=== PATIENT | male | born 1950 | race Caucasian/White ===

== ENCOUNTER → 2017-01-11 | Outpatient (REF) | payer OTHER | LOC: M LABDRAW1 09:22 | PROVIDERS: ATTEND Urology | DX: Z85.46 Personal history of malignant neoplasm of prostate (principal) ==

== ENCOUNTER → 2017-02-27 | Outpatient (REF) | payer OTHER ==
[2017-02-27 10:29] LABS: ALT/SGPT 43 U/L (12-78); ANION GAP 4 MEQ/L (8-16); AST/SGOT 22 U/L (7-37); BLOOD UREA NITROGEN 17 MG/DL (7-18); CALCIUM LEVEL 9.2 MG/DL (8.8-10.2); CARBON DIOXIDE LEVEL 32 MEQ/L (21-32); CHLORIDE LEVEL 105 MEQ/L (98-107); CHOLESTEROL LEVEL 199 MG/DL (<200); CREATININE FOR GFR 1.15 MG/DL (0.70-1.30); GLOMERULAR FILTRATION RATE > 60.0 (>49); GLUCOSE, FASTING 105 MG/DL (80-110); POTASSIUM SERUM 4.5 MEQ/L (3.5-5.1); SODIUM LEVEL 141 MEQ/L (136-145); TRIGLYCERIDES LEVEL 131 MG/DL (<150)
== END ==
LOC: M LABDRAW1 09:51
PROVIDERS: ATTEND Family Medicine
DX: E78.00 Pure hypercholesterolemia, unspecified (principal); I10 Essential (primary) hypertension

== ENCOUNTER → 2018-02-21 | Outpatient (CLI) | payer OTHER ==
[2018-02-21 11:02] LABS: PROSTATIC SPECIFIC AG MONITOR < 0.0 NG/ML (< 4.0)
== END ==
LOC: M LAB 09:27
DX: Z85.46 Personal history of malignant neoplasm of prostate (principal)
CPT/HCPCS: 84153

== ENCOUNTER → 2018-02-27 | Outpatient (CLI) | payer OTHER | LOC: M WUC 16:51 | DX: M19.041 Primary osteoarthritis, right hand (principal); M19.042 Primary osteoarthritis, left hand | CPT/HCPCS: 73130 ==

== ENCOUNTER → 2018-02-27 | Outpatient (REF) | payer OTHER ==
[2018-02-27 12:50] LABS: HEMATOCRIT 47.9 % (42.0-52.0); HEMOGLOBIN 16.2 g/dl (13.5-17.5); MEAN CORPUSCULAR HGB CONC 33.8 g/dl (32.0-36.5); MEAN CORPUSCULAR VOLUME 91.6 fl (80.0-96.0); PLATELET COUNT, AUTOMATED 220 10^3/uL (150-450); RED BLOOD COUNT 5.23 10^6/uL (4.30-6.10); RED CELL DISTRIBUTION WIDTH 12.2 % (11.5-14.5); WHITE BLOOD COUNT 5.5 10^3/uL (4.0-10.0)
[2018-02-27 13:00] LABS: C REACTIVE PROTEIN QUANTITATIV < 0.30 MG/DL (0.00-0.30)
[2018-02-27 13:00] LABS: RHEUMATOID FACTOR QUANT < 10.0 IU/ML (<15.0)
[2018-02-27 13:17] LABS: ERYTHROCYTE SEDIMENTATION RATE 3 mm/hr (0-20)
[2018-03-01 00:57] LABS: CYCLIC CITRULLINATED PEPTIDE 8 units (0-19)
[2018-03-01 00:57] LABS: ANTINUCLEAR ANTIBODIES DIRECT Negative (Negative)
== END ==
LOC: M LABDRAW1 11:55
DX: M25.541 Pain in joints of right hand (principal); M25.542 Pain in joints of left hand
CPT/HCPCS: 86140

== ENCOUNTER → 2018-09-29 | Outpatient (CLI) | payer OTHER ==
--- NOTE | 2018-09-30 06:15 | ECHO ---
DATE OF PROCEDURE: 09/29/2018 DATE OF : 1950 OUTPATIENT REFERRING PHYSICIAN: Dr. Anegl Sylvester INDICATION: Aortic stenosis. MEASUREMENTS 2-D Measurements: RV: 3.3 cm LV: 5.0 cm Septum: 1.1 cm Posterior wall: 1.1 cm Aortic root: 3.3 cm LA: 4.0 cm LVEF: 65% Doppler Measurements: AV: 1.88 m/s LVOT: Unfortunately off angle and incorrect LVOT diameter: 2.0 Mean AV gradient: 8 mmHg MV - E 83 A 61 EA ratio 1.4 Early mitral deceleration time: 197 ms E prime: 5.6, A prime: 7.8 E/E prime ratio: 14.8 PCWP: 14.9 mmHg PV: 0.9 m/s Pulmonary artery acceleration time: 110 ms RVSP: 32 mmHg IVC: 1.9 cm COMMENTS: Sinus bradycardia without intraventricular conduction disturbance. M-mode and two-dimensional echocardiography was performed with pulsed, continuous wave, color flow and tissue Doppler studies. Normal left ventricular size and wall thickness with normal wall motion. Mildly dilated left atrium with an impairment of LV diastolic function and current estimated mean left atrial pressure slightly elevated. Normal appearing right heart chamber sizes and motion with Doppler evidence of mild pulmonary hypertension. Normal IVC size and collapse against an elevated central venous pressure. Aortic valvular sclerosis with ample of cusp separation and normal mean gradient against any left ventricle outflow tract obstruction. No apparent insufficiency. Normal aortic root size. Normal appearing and functioning mitral valve. No apparent intracardiac mass or pericardial effusion. MTDD
== END ==
LOC: M CARPUL 09:10
PROVIDERS: ATTEND Family Medicine
DX: I35.0 Nonrheumatic aortic (valve) stenosis (principal); R00.1 Bradycardia, unspecified

== ENCOUNTER → 2019-03-09 | Outpatient (REF) | payer OTHER | LOC: M LABDRAW1 11:45 | PROVIDERS: ATTEND Urology | DX: Z85.46 Personal history of malignant neoplasm of prostate (principal) ==

== ENCOUNTER → 2020-03-17 | Outpatient (CLI) | payer OTHER | LOC: M LAB 11:41 | PROVIDERS: ATTEND Urology | DX: Z85.46 Personal history of malignant neoplasm of prostate (principal) ==

== ENCOUNTER → 2021-03-01 | Outpatient (CLI) | payer OTHER | LOC: M RAD 11:44 | PROVIDERS: ATTEND Family Medicine | DX: L03.116 Cellulitis of left lower limb (principal) ==

== ENCOUNTER → 2021-03-20 | Outpatient (CLI) | payer OTHER | LOC: M PLALAB 07:57 | PROVIDERS: ATTEND Urology | DX: Z85.46 Personal history of malignant neoplasm of prostate (principal) ==

== ENCOUNTER → 2021-10-30 | Outpatient (CLI) | payer OTHER ==
[2021-10-30 12:39] LABS: ALBUMIN 3.9 GM/DL (3.2-5.2); BILIRUBIN,TOTAL 0.7 MG/DL (0.2-1.0); CALCIUM LEVEL 9.1 MG/DL (8.8-10.2); CHOLESTEROL RISK RATIO 2.603 (<5); CREATININE FOR GFR 1.3 MG/DL (0.70-1.30); GLOMERULAR FILTRATION RATE 58.3 (>49); POTASSIUM SERUM 4.3 MEQ/L (3.5-5.1)
== END ==
LOC: M PLALAB 08:18
PROVIDERS: ATTEND Family Medicine
DX: E78.00 Pure hypercholesterolemia, unspecified (principal); I10 Essential (primary) hypertension

== ENCOUNTER → 2022-04-10 | Outpatient (CLI) | payer OTHER ==
[2022-04-11 23:07] LABS: PSA TOTAL <0.1 ng/mL (0.0-4.0)
== END ==
LOC: M PLALAB 11:15
PROVIDERS: ATTEND Urology
DX: Z85.46 Personal history of malignant neoplasm of prostate (principal)

== ENCOUNTER → 2023-04-17 | Outpatient (CLI) | payer OTHER | LOC: M PLALAB 09:31 | PROVIDERS: ATTEND Physician Assistant | DX: Z85.46 Personal history of malignant neoplasm of prostate (principal); Z08 Encounter for follow-up examination after completed treatment for malignant neoplasm ==

== ENCOUNTER 2023-06-13 08:51 | Day surgery (SDC) | payer OTHER ==
[~2023-06-13] VITALS: Ht 175.3 cm; Wt 90.7 kg
[~2023-06-13 08:51] MED LIST: EZET10TA21 PO; LISI20TA33 PO; MIRT-10 PO; ROSU20TA61 PO; SOLI10TA PO
[2023-06-13] MEDS: NS 1,000 ML IV ONE (09:24)
[2023-06-13 10:43] VITALS: TEMP 99
[2023-06-13] MEDS ORDERED: propofoL 500 MG/50 ML VIAL As Ordered ONE (10:43)
[2023-06-13 11:01] VITALS: BP 122/84; O2SAT 98
== END 2023-06-13 11:21 | disposition home or self-care (01) ==
LOC: M OPP 08:51
PROVIDERS: ATTEND Surgery
DX: Z12.11 Encounter for screening for malignant neoplasm of colon (principal); Z85.46 Personal history of malignant neoplasm of prostate; Z87.891 Personal history of nicotine dependence; Z79.02 Long term (current) use of antithrombotics/antiplatelets; Z79.899 Other long term (current) drug therapy

== ENCOUNTER 2023-08-18 19:18 | Observation (INO) | payer OTHER ==
[~2023-08-18] VITALS: Ht 175.3 cm; Wt 94.0 kg
[2023-08-18] MEDS: ONDANSETRON 4MG 2ML VIAL IV ONE (19:44)
[2023-08-18] MEDS: HYDROMORPHONE HCL 0.5 MG/ 0.5 ML SYRINGE IV PRN (19:45)
[2023-08-18 19:53] LABS: BASO % 0.6 % (0.0-1.0); EOS # 0.2 10^3/uL (0.0-0.5); EOS % 2.9 % (0.0-3.0); HEMATOCRIT 46.9 % (42.0-52.0); HEMOGLOBIN 16.2 g/dl (13.5-17.5); LYMPH # 1.9 10^3/uL (1.5-5.0); LYMPH % 27.9 % (24.0-44.0); MEAN CORPUSCULAR HGB CONC 34.5 g/dl (32.0-36.5); MEAN CORPUSCULAR VOLUME 89.8 fl (80.0-96.0); MONO # 0.5 10^3/uL (0.0-0.8); MONO % 7.2 % (2.0-8.0); NEUTROPHILS # 4.3 10^3/uL (1.5-8.5); NEUTROPHILS % 61.1 % (36.0-66.0); PLATELET COUNT, AUTOMATED 221 10^3/uL (150-450); RED BLOOD COUNT 5.22 10^6/uL (4.30-6.10)
[2023-08-18 20:04] LABS: INR 0.99; PROTHROMBIN TIME 12.8 SECONDS (12.5-14.5)
[2023-08-18 20:14] LABS: CK-MB VALUE MASS 9.7 NG/ML (<3.6)
[2023-08-18 20:16] LABS: ALBUMIN 4.1 G/DL (3.2-5.2); BILIRUBIN,DIRECT 0.2 MG/DL (<0.4); BILIRUBIN,TOTAL 0.6 MG/DL (0.3-1.2); TOTAL PROTEIN 6.6 G/DL (5.7-8.2)
[2023-08-18 20:29] LABS: ETHYL ALCOHOL (ETHANOL) 0.004 % (0.000-0.010)
[2023-08-18 20:39] LABS: MB/CK RELATIVE INDEX 1.25 (< OR =4)
[2023-08-18] MEDS ORDERED: DOXYCYCLINE HYCLATE 100MG TABLET PO SCH (21:00)
[2023-08-18] MEDS ORDERED: ALEV220T22 PO (22:48)
[2023-08-18] MEDS ORDERED: ASPI81TA26 PO (22:48)
[2023-08-18] MEDS ORDERED: HOME MED LIST COMPLETE! XX SCH (22:50)
[2023-08-19] MEDS: MIRTAZAPINE 15 MG TAB PO SCH (00:23)
[2023-08-19] MEDS: ROSUVASTATIN 10 MG TAB (CRESTOR) PO SCH (00:23)
[2023-08-19] MEDS: EZETIMIBE 10MG TABLET (ZETIA) PO SCH (00:23)
[2023-08-19] MEDS: NS 1,000 ML IV SCH (00:24)
[2023-08-19 00:56] VITALS: BP 133/89; TEMP 96.8; O2SAT 96
[2023-08-19] MEDS: MORPHINE 4 MG/ML 1ML VIAL IV PRN (04:28)
[2023-08-19 05:57] VITALS: BP 148/84; TEMP 97.9; O2SAT 97
[2023-08-19 06:14] LABS: HEMATOCRIT 43.6 % (42.0-52.0); HEMOGLOBIN 14.4 g/dl (13.5-17.5); MEAN CORPUSCULAR HEMOGLOBIN 30.6 pg (27.0-33.0); MEAN CORPUSCULAR VOLUME 92.6 fl (80.0-96.0); PLATELET COUNT, AUTOMATED 212 10^3/uL (150-450); RED BLOOD COUNT 4.71 10^6/uL (4.30-6.10); WHITE BLOOD COUNT 7.3 10^3/uL (4.0-10.0)
[2023-08-19 06:35] LABS: ALBUMIN 3.5 G/DL (3.2-5.2); ALKALINE PHOSPHATASE 53 U/L (46-116); ALT/SGPT 29 U/L (7.0-40); AST/SGOT 31 U/L (<34); BILIRUBIN,TOTAL 0.8 MG/DL (0.3-1.2); BLOOD UREA NITROGEN 20 MG/DL (9-23); CALCIUM LEVEL 8.4 MG/DL (8.3-10.6); CARBON DIOXIDE LEVEL 28 MMOL/L (20-31); CHLORIDE LEVEL 108 MMOL/L (98-107); CREATININE FOR GFR 1.05 MG/DL (0.70-1.30); GLOMERULAR FILTRATION RATE > 60.0 (>42); GLUCOSE, FASTING 114 MG/DL (74-106); POTASSIUM SERUM 4.4 MMOL/L (3.5-5.1); SODIUM LEVEL 140 MMOL/L (136-145); TOTAL PROTEIN 5.7 G/DL (5.7-8.2)
[2023-08-19] MEDS: DOCUSATE SODIUM 100MG CAPSULE PO SCH (09:54)
[2023-08-19] MEDS: NORCO, ANEXSIA 5/325MG TABLET (HYDROcodone/ACETAMINOPHEN) PO PRN (11:31)
[2023-08-19 14:00] VITALS: BP 127/85; TEMP 97.9; O2SAT 94
[2023-08-19] MEDS: ceFAZolin 2 GM/D5W 50 ML IV BAG As Ordered ONE (20:46)
[2023-08-19] MEDS ORDERED: ONDANSETRON 4MG 2ML VIAL As Ordered ONE (20:51)
[2023-08-19] MEDS ORDERED: fentaNYL 100 MCG/2 ML INJECTION As Ordered ONE (20:51)
[2023-08-19] MEDS ORDERED: LIDOCAINE 2% 100MG/5ML SDV (FOR ANES.) As Ordered ONE (20:51)
[2023-08-19] MEDS: TRANEXAMIC ACID 100 MG/ML 10ML VIAL As Ordered ONE (20:51)
[2023-08-19] MEDS ORDERED: propofoL 200 MG/20 ML VIAL As Ordered ONE (20:51)
[2023-08-19] MEDS ORDERED: MIDAZOLAM INJ 2MG/2ML VIAL As Ordered ONE (20:51)
[2023-08-19] MEDS ORDERED: ROCURONIUM BROMIDE 50MG/5ML VIAL As Ordered ONE (20:59)
[2023-08-19] MEDS ORDERED: ACETAMINOPHEN 1000MG 100ML IV BAG As Ordered ONE (21:06)
[2023-08-19] MEDS ORDERED: HYDROmorphone HCL 2MG/ML 1ML VIAL As Ordered ONE (21:41)
[2023-08-19] MEDS ORDERED: KETOROLAC 60MG 2ML VIAL As Ordered ONE (21:44)
[2023-08-20] VITALS (16 sets, daily range): BP systolic 110–140; BP diastolic 56–85; TEMP 97.5–98.2; O2SAT 82–99
[2023-08-20] MEDS: LR 1,000 ML IV SCH (01:53)
[2023-08-20 05:54] LABS: HEMATOCRIT 42.4 % (42.0-52.0); HEMOGLOBIN 14.3 g/dl (13.5-17.5); MEAN CORPUSCULAR HEMOGLOBIN 31.1 pg (27.0-33.0); MEAN CORPUSCULAR HGB CONC 33.7 g/dl (32.0-36.5); MEAN CORPUSCULAR VOLUME 92.2 fl (80.0-96.0); PLATELET COUNT, AUTOMATED 191 10^3/uL (150-450); WHITE BLOOD COUNT 6.3 10^3/uL (4.0-10.0)
[2023-08-20 06:15] LABS: ALBUMIN 3.2 G/DL (3.2-5.2); ALKALINE PHOSPHATASE 54 U/L (46-116); ALT/SGPT 27 U/L (7.0-40); AST/SGOT 32 U/L (<34); BILIRUBIN,TOTAL 0.7 MG/DL (0.3-1.2); BLOOD UREA NITROGEN 18 MG/DL (9-23); CALCIUM LEVEL 8.2 MG/DL (8.3-10.6); CARBON DIOXIDE LEVEL 25 MMOL/L (20-31); CHLORIDE LEVEL 107 MMOL/L (98-107); CREATININE FOR GFR 1.04 MG/DL (0.70-1.30); GLOMERULAR FILTRATION RATE > 60.0 (>42); GLUCOSE, FASTING 124 MG/DL (74-106); POTASSIUM SERUM 4.6 MMOL/L (3.5-5.1); SODIUM LEVEL 138 MMOL/L (136-145); TOTAL PROTEIN 5.6 G/DL (5.7-8.2)
[2023-08-20] MEDS: ASPIRIN 81MG CHEW TABLET PO SCH (09:04)
[2023-08-20] MEDS: ACETAMINOPHEN TAB 650MG DOSE (2X325MG) PO PRN (09:04)
[2023-08-20] MEDS ORDERED: PERCOCET 5MG/325MG TAB PO PRN (11:10)
[2023-08-20] MEDS: PERCOCET 5MG/325MG TAB PO PRN (11:21)
[2023-08-20] MEDS: ceFAZolin SOD 2 GM in IV 1 EA IV SCH (11:50)
[2023-08-20] MEDS: DOXYCYCLINE HYCLATE 100MG TABLET PO SCH (20:01)
[2023-08-21 01:15] VITALS: BP 140/79; TEMP 97.7; O2SAT 92
[2023-08-21 06:00] VITALS: BP 139/81; TEMP 97.5; O2SAT 97
[2023-08-21] MEDS: ENOXAPARIN 40MG/0.4ML SYRINGE (J1650 PER 10MG) SC SCH (08:20)
[2023-08-21 14:00] VITALS: BP 146/95; TEMP 98.1; O2SAT 98
[2023-08-21 21:59] VITALS: BP 147/91; TEMP 97.9; O2SAT 96
[2023-08-22 00:07] VITALS: BP 147/91; TEMP 97.9; O2SAT 82
[2023-08-22 05:39] VITALS: BP 143/91; TEMP 98.1; O2SAT 100
[2023-08-22 08:32] VITALS: BP 145/83
[2023-08-22] MEDS ORDERED: OXYC1TAB23 PO (11:53)
[2023-08-22] MEDS ORDERED: ASPI81TA26 PO (11:53)
[2023-08-22] MEDS ORDERED: MIRA3350 PO (11:53)
[2023-08-22] MEDS ORDERED: DOXY100T PO (11:53)
[2023-08-22] MEDS ORDERED: COLA100C5 PO (11:53)
[2023-08-22 14:00] VITALS: BP 137/89; TEMP 98.1; O2SAT 91
== END 2023-08-22 14:39 | disposition home health service (06) ==
LOC: M ED 19:18 → EDBD 19:18 → M MSPAV 23:32 → INTOOBSV 23:32 → M ED INP 23:32 → M MSPAV 08-19 00:51
PROVIDERS: ADMIT Internal Medicine; ATTEND Internal Medicine
DX: S82.251A Displaced comminuted fracture of shaft of right tibia, initial encounter for closed fracture (principal); S82.451A Displaced comminuted fracture of shaft of right fibula, initial encounter for closed fracture; W11.XXXA Fall on and from ladder, initial encounter; Y92.015 Private garage of single-family (private) house as the place of occurrence of the external cause; Y93.E9 Activity, other interior property and clothing maintenance; Y99.8 Other external cause status; R21 Rash and other nonspecific skin eruption; I10 Essential (primary) hypertension; E78.5 Hyperlipidemia, unspecified; M19.90 Unspecified osteoarthritis, unspecified site; M54.9 Dorsalgia, unspecified; F32.A Depression, unspecified; Z87.442 Personal history of urinary calculi; Z85.46 Personal history of malignant neoplasm of prostate; Z90.79 Acquired absence of other genital organ(s); Z87.891 Personal history of nicotine dependence; Z83.3 Family history of diabetes mellitus; Z82.49 Family history of ischemic heart disease and other diseases of the circulatory system; M47.812 Spondylosis without myelopathy or radiculopathy, cervical region; I67.82 Cerebral ischemia; G31.1 Senile degeneration of brain, not elsewhere classified; Z79.899 Other long term (current) drug therapy; Z79.82 Long term (current) use of aspirin
CPT/HCPCS: 27759; 36415; 70450; 70486; 71045; 72125; 73560; 73590; 73600; 76000; 80047; 80053; 80076; 82077; 82150; 82550; 82553; 83605; 83690; 84484; 85025; 85027; 85610; 86618; 86850; 86900; 86901; 93005; 96361; 96365; 96372; 96375; 97116; 97161; 97165; 97530; 97535; 99284; A4649; C1713; C9290; J0131; J0665; J0690; J1100; J1170; J1650; J1885; J2250; J2405; J3010

== ENCOUNTER → 2023-09-02 | Outpatient (CLI) | payer OTHER ==
[~2023-09-02] MED LIST changes: +ALEV220T22 PO; +ASPI81TA26 PO; +COLA100C5 PO; +DOXY100T PO; +MIRA3350 PO; +OXYC1TAB23 PO
== END ==
LOC: M SOG 07:59
PROVIDERS: ATTEND Physician Assistant
DX: S82.401A Unspecified fracture of shaft of right fibula, initial encounter for closed fracture (principal); W18.30XA Fall on same level, unspecified, initial encounter; Y92.009 Unspecified place in unspecified non-institutional (private) residence as the place of occurrence of the external cause

== ENCOUNTER → 2023-09-12 | Outpatient (CLI) | payer OTHER | LOC: M SOG 07:59 | PROVIDERS: ATTEND Physician Assistant | DX: S82.401A Unspecified fracture of shaft of right fibula, initial encounter for closed fracture (principal); Y93.9 Activity, unspecified; Y92.9 Unspecified place or not applicable ==

== ENCOUNTER → 2023-10-10 | Outpatient (CLI) | payer OTHER | LOC: M SOG 07:52 | PROVIDERS: ATTEND Physician Assistant | DX: S82.401A Unspecified fracture of shaft of right fibula, initial encounter for closed fracture (principal); Y93.9 Activity, unspecified; Y92.9 Unspecified place or not applicable ==

== ENCOUNTER 2023-10-16 12:43 | Day surgery (SDC) | payer OTHER ==
[~2023-10-16] VITALS: Ht 175.3 cm; Wt 87.4 kg
[~2023-10-16 12:43] MED LIST changes: +GABA300T2 PO
[2023-10-16] MEDS ORDERED: TYLE650T38 PO (13:10)
[2023-10-16] MEDS ORDERED: fentaNYL 100 MCG/2 ML INJECTION As Ordered ONE (18:57)
[2023-10-16] MEDS ORDERED: propofoL 200 MG/20 ML VIAL As Ordered ONE (18:57)
[2023-10-16] MEDS ORDERED: MIDAZOLAM INJ 2MG/2ML VIAL As Ordered ONE (18:57)
[2023-10-16] MEDS ORDERED: ACETAMINOPHEN 1000MG 100ML IV BAG As Ordered ONE (18:57)
[2023-10-16] MEDS ORDERED: ONDANSETRON 4MG 2ML VIAL As Ordered ONE (18:57)
[2023-10-16] MEDS ORDERED: LIDOCAINE 2% 100MG/5ML SDV (FOR ANES.) As Ordered ONE (18:57)
[2023-10-16] MEDS: ceFAZolin 2 GM/D5W 50 ML IV BAG As Ordered ONE (19:01)
[2023-10-16] MEDS: LIDOCAINE 1% SDV 30ML VIAL As Ordered ONE (19:02)
[2023-10-16 19:36] VITALS: BP 154/86; TEMP 97.3; O2SAT 97
== END 2023-10-16 19:42 | disposition home or self-care (01) ==
LOC: M SDC 12:43
PROVIDERS: ATTEND Orthopaedic Surgery
DX: T84.126A Displacement of internal fixation device of bone of right lower leg, initial encounter (principal); Y79.2 Prosthetic and other implants, materials and accessory orthopedic devices associated with adverse incidents; I10 Essential (primary) hypertension; E78.00 Pure hypercholesterolemia, unspecified; Z79.82 Long term (current) use of aspirin; Z79.899 Other long term (current) drug therapy; Z85.46 Personal history of malignant neoplasm of prostate; Z90.79 Acquired absence of other genital organ(s)
CPT/HCPCS: 20680; 76000; J0131; J0665; J0690; J2250; J2405; J3010

== ENCOUNTER → 2023-10-24 | Outpatient (CLI) | payer OTHER ==
[~2023-10-24] MED LIST changes: +TYLE650T38 PO
== END ==
LOC: M SOG 11:16
PROVIDERS: ATTEND Orthopaedic Surgery
DX: S82.401A Unspecified fracture of shaft of right fibula, initial encounter for closed fracture (principal); Y93.9 Activity, unspecified; Y92.9 Unspecified place or not applicable

== ENCOUNTER → 2023-11-14 | Outpatient (CLI) | payer OTHER | LOC: M PLALAB 10:21 | PROVIDERS: ATTEND Physician Assistant | DX: S82.201D Unspecified fracture of shaft of right tibia, subsequent encounter for closed fracture with routine healing (principal) ==

== ENCOUNTER → 2023-11-14 | Outpatient (CLI) | payer OTHER | LOC: M SOG 09:27 | PROVIDERS: ATTEND Physician Assistant | DX: S82.201D Unspecified fracture of shaft of right tibia, subsequent encounter for closed fracture with routine healing (principal); Y93.9 Activity, unspecified; Y92.9 Unspecified place or not applicable ==

== ENCOUNTER → 2023-12-12 | Outpatient (CLI) | payer OTHER | LOC: M SOG 07:20 | PROVIDERS: ATTEND Physician Assistant | DX: S82.201D Unspecified fracture of shaft of right tibia, subsequent encounter for closed fracture with routine healing (principal) ==

== ENCOUNTER → 2023-12-16 | Outpatient (CLI) | payer OTHER ==
[2023-12-16 13:27] LABS: BASO % 0.5 % (0.0-1.0); EOS # 0.2 10^3/uL (0.0-0.5); HEMATOCRIT 47.1 % (42.0-52.0); HEMOGLOBIN 15.8 g/dl (13.5-17.5); LYMPH # 1.8 10^3/uL (1.5-5.0); LYMPH % 30.1 % (24.0-44.0); MEAN CORPUSCULAR HEMOGLOBIN 30.7 pg (27.0-33.0); MEAN CORPUSCULAR HGB CONC 33.5 g/dl (32.0-36.5); MEAN CORPUSCULAR VOLUME 91.5 fl (80.0-96.0); MONO # 0.5 10^3/uL (0.0-0.8); MONO % 8.2 % (2.0-8.0); NEUTROPHILS # 3.4 10^3/uL (1.5-8.5); NEUTROPHILS % 57.2 % (36.0-66.0); PLATELET COUNT, AUTOMATED 230 10^3/uL (150-450); RED BLOOD COUNT 5.15 10^6/uL (4.30-6.10)
[2023-12-16 13:36] LABS: ERYTHROCYTE SEDIMENTATION RATE 5 mm/hr (0-20)
== END ==
LOC: M PLALAB 10:08
PROVIDERS: ATTEND Orthopaedic Surgery
DX: S82.201D Unspecified fracture of shaft of right tibia, subsequent encounter for closed fracture with routine healing (principal); Y93.9 Activity, unspecified; Y92.9 Unspecified place or not applicable

== ENCOUNTER → 2024-01-16 | Outpatient (CLI) | payer OTHER ==
[~2024-01-16] MED LIST changes: -ROSU20TA61 PO; +ROSU20TA86 PO
== END ==
LOC: M SOG 13:15
PROVIDERS: ATTEND Physician Assistant
DX: S82.201A Unspecified fracture of shaft of right tibia, initial encounter for closed fracture (principal); Y92.9 Unspecified place or not applicable; Y93.9 Activity, unspecified

== ENCOUNTER → 2024-04-16 | Outpatient (CLI) | payer OTHER | LOC: M PLALAB 10:38 | PROVIDERS: ATTEND Physician Assistant | DX: Z85.46 Personal history of malignant neoplasm of prostate (principal) ==

== ENCOUNTER → 2024-08-13 | Outpatient (CLI) | payer OTHER | LOC: M SOG 06:55 | PROVIDERS: ATTEND Physician Assistant | DX: S82.201D Unspecified fracture of shaft of right tibia, subsequent encounter for closed fracture with routine healing (principal) ==